=== PATIENT | female | born 1980 | race American Indian/Alaskan Native ===

== ENCOUNTER 2016-10-24 10:42 | Day surgery (SDC) | payer MEDICAID ==
--- NOTE | 2016-10-24 11:55 | Anesthesia Consultation ---
Anesthesia Consult and Med Hx Date of service: 10/24/16 - Airway Anesthetic Teeth Evaluation: Good, Caps (top left canine) ROM Head & Neck: Adequate Mental/Hyoid Distance: Adequate Mallampati Class: Class II Intubation Access Assessment: Probably Good - Pulmonary Exam CTA: Yes - Cardiac Exam Cardiac Exam: RRR - Pre-Operative Health Status ASA Pre-Surgery Classification: ASA2 Proposed Anesthetic Plan: MAC - Pulmonary Hx Smoking: Yes Hx Asthma: Yes (childhood) - Central Nervous System Hx Psychiatric Problems: Yes (Anxiety/Depression) - Hematic Hx Anemia: Yes
--- NOTE | 2016-10-24 11:55 | Anesthesia Day of Surgery ---
Anesthesia Day of Surgery - Day of Surgery Patient Examined: Yes Patient H&P Reviewed: Yes Patient is NPO: Yes
[2016-10-24] MEDS ORDERED: NACL 0.9% 1000 ML 1,000 ML IV SCH (12:00)
[2016-10-24] MEDS ORDERED: DIPRIVAN 10 MG/ML IV ONE ×3 (12:56)
[2016-10-24] MEDS ORDERED: XYLOCAINE MPF 2% ONE (13:00)
[2016-10-24] MEDS ORDERED: WATER FOR IRRIG STERILE IR ONE (13:02)
--- NOTE | 2016-10-24 13:55 | History and Physical Report ---
History of Present Illness Date of examination: 10/24/16 Date of admission: 10/24/2016 Chief complaint: Rectal bleeding, abdominal pain. History of present illness: Patient is 36-year-old female presents for evaluation of recurrent rectal bleeding and diffuse abdominal discomfort. Pain is particularly in the lower abdomen. Patient denies any other associated complaints. She presents now for colonoscopic assessment. Past History Past Medical History: other (depression) Medications and Allergies Allergies Allergy/AdvReac Type Severity Reaction Status Date / Time bupropion HCl Allergy Swelling Unverified 10/24/16 10:42 [From Wellbutrin] Latex, Natural Rubber Allergy Itching Unverified 10/24/16 10:42 Home Medications Medication Instructions Recorded Confirmed Last Taken Type Sertraline HCl [Zoloft] 50 mg PO 10/24/16 10/23/16 History Active Meds: Active Medications Sodium Chloride (Nacl 0.9% 1000 Ml) 1,000 mls @ 50 mls/hr IV DIRECT CASIMIRO Last Admin: 10/24/16 11:47 Dose: 50 mls/hr Review of Systems All systems: negative Exam - Constitutional Vitals: Temp Pulse Resp BP Pulse Ox 98.3 F 89 20 128/73 98 10/24/16 11:43 10/24/16 11:43 10/24/16 11:43 10/24/16 11:43 10/24/16 11:43 General appearance: Present: no acute distress, well-nourished - EENT Eyes: Present: PERRL ENT: hearing intact, clear oral mucosa - Neck Neck: Present: supple, normal ROM - Respiratory Respiratory effort: normal Respiratory: bilateral: CTA - Cardiovascular Heart Sounds: Present: S1 & S2. Absent: rub, click - Extremities Extremities: pulses symmetrical, No edema Peripheral Pulses: within normal limits - Abdominal General gastrointestinal: Present: soft, non-tender, non-distended, normal bowel sounds Female genitourinary: Present: normal - Integumentary Integumentary: Present: clear, warm, dry - Musculoskeletal Musculoskeletal: gait normal, strength equal bilaterally - Psychiatric Psychiatric: appropriate mood/affect, intact judgment & insight - Neurologic Neurologic: CNII-XII intact, moves all extremities Assessment and Plan Recurrent rectal bleeding/blood in stool. Diffuse abdominal pain. Plan: Full colonoscopy to evaluate patient.
--- NOTE | 2016-10-24 14:05 | Operative Report ---
Operative Report Operative Report: Date of procedure: 10/24/2016 Procedure: Colonoscopy with multiple hot biopsy polypectomies, multiple cold biopsies. Attending physician: Jelani Mckeon MD Home Visit Field Care Manager: Jelani Mckeon MD Indication: Patient is a 36-year-old female who presented history of recurrent rectal bleeding/blood in stool. She also has a history of abdominal pain. A colonoscopy is done to evaluate patient so that treatment may be directed based the findings. Consent: Informed consent was obtained after advising the patient and family regarding nature of this procedure, its indications, potential benefits as well as possible complications including but not limited to bleeding perforation and adverse reaction to medication, infection as well as other cardiopulmonary complications. An informed written and verbal consent was then obtained after due opportunity was provided for questions and answers. Monitoring: Patient was monitored continuously with pulse oximetry and electrocardiographic recordings as well as blood pressure recordings. Vital signs remained stable throughout this procedure with no untoward events. Preoperative assessment: Patient was assessed immediately prior to this procedure for capacity to tolerate monitored anesthesia care and moderate sedation as well as general anesthesia. Patient's ASA classification is 1, Mallampati class is 2, Hyomental distance is 3. Instrument: TheTaken videocolonoscope Medications: Propofol given intravenously in divided doses. For details please refer to anesthesia records. Description of procedure: Patient was placed in the left lateral decubitus position after achieving sedation, a digital rectal examination was performed following which the colonoscope was introduced into the anal verge and advanced to the cecum which was identified by the ileocecal valve, the appendiceal orifice, as well as by the cecal strap and direct transillumination. The colonoscope was subsequently withdrawn with careful inspection of all mucosal surfaces. Patient tolerated this procedure well and was subsequently taken to the recovery room. The following findings were noted. Findings: The colon was moderately tortuous. There were diverticula in the sigmoid colon and the descending colon. There were diminutive polyps seen in the sigmoid colon which were removed by hot biopsy polypectomy there were 2 of these. In the descending colon, there were additional diminutive polyps which were removed by hot biopsy polypectomy and retrieved. Also, there were diminutive polyps that were ablated, in the descending colon. In the rectum, patient had an area of mucosal prominence of unspecified endoscopic significance. This was biopsied as this appeared somewhat abnormal. On the retroflexed view at the anal verge patient had internal hemorrhoids. Impression: Multiple diminutive colon polyps status post hot biopsy polypectomy. Prominent mucosal fold in the rectum status post biopsies. Plan: Follow pathology report High-fiber diet Consider additional evaluation depending on the findings on the pathology report including a sigmoidoscopy to further review the rectal because a prominence. Additional steps will be taken in follow-up.
[2016-10-24 14:12] VITALS: BP 120/81
--- NOTE | 2016-10-24 15:00 | Post Anesthesia Evaluation ---
- Post Anesthesia Evaluation Patient Participated: Yes Airway Patent: Yes Stable Respiratory Function: Yes Nausea/Vomiting: No Temp > 96.8F: Yes Pain Manageable: Yes Adequeate Hydration: Yes Anesthesia Complications: No Block Receding Appropriately: Not Applicable Patient on Ventilator: No
== END 2016-10-24 10:43 | disposition home or self-care (01) ==
LOC: GIO 10:42
PROVIDERS: ATTEND Internal Medicine Gastroenterology
DX: K63.5 Polyp of colon (principal); K63.89 Other specified diseases of intestine; K57.30 Diverticulosis of large intestine without perforation or abscess without bleeding; K64.8 Other hemorrhoids; F32.9 Major depressive disorder, single episode, unspecified; Z88.8 Allergy status to other drugs, medicaments and biological substances; Z91.040 Latex allergy status
CPT/HCPCS: 45380; 45384; 45388; 81025; 88305; J2704

== ENCOUNTER 2017-10-28 08:31 | Emergency (ER) | payer MEDICAID ==
[2017-10-28 09:42] LABS: Hematocrit 31.7 % (30.3-42.9); Hemoglobin 9.7 gm/dl (10.1-14.3); Lymphocytes % (Auto) 19.9 % (13.4-35.0); Mean Corpuscular HGB Conc 31 % (30-34); Mean Corpuscular Hemoglobin 20 pg (28-32); Mean Corpuscular Volume 66 fl (79-97); Mean Platelet Volume 8.1 fl (6-12); Platelet Count 465 K/mm3 (140-440); Red Blood Count 4.83 M/mm3 (3.65-5.03); Red Cell Distribution Width 16.4 % (13.2-15.2)
[2017-10-28 09:43] LABS: Basophils % (Auto) 0.4 % (0.0-1.8); Eosinophils % (Auto) 0.8 % (0.0-4.3); Lymphocytes # (Auto) 1.8 K/mm3 (1.2-5.4); Monocytes % (Auto) 4.8 % (0.0-7.3)
[2017-10-28 09:44] LABS: Eosinophils # (Auto) 0.1 K/mm3 (0.0-0.4); Monocytes # (Auto) 0.4 K/mm3 (0.0-0.8)
[2017-10-28 09:53] LABS: Alanine Aminotransferase 10 units/L (7-56); BUN/Creatinine Ratio 8; Blood Urea Nitrogen 5 mg/dL (7-17); Calcium 9.4 mg/dL (8.4-10.2); Hemolysis Index 0; Lipase 73 units/L (13-60)
[2017-10-28] MEDS ORDERED: ZOFRAN IV ONE (10:21)
[2017-10-28] MEDS ORDERED: NACL 0.9% 1000 ML 1,000 ML IV ONE (10:21)
[2017-10-28] MEDS ORDERED: MORPHINE IV ONE (10:22)
[2017-10-28] MEDS ORDERED: ALUM-MAG HYDROX-SIMETH 200-200-20MG/5ML PO ONE (11:10)
[2017-10-28] MEDS ORDERED: LIDOCAINE VISCOUS 2% PO ONE (11:10)
[2017-10-28 11:23] LABS: Bilirubin,Urine NEG (Negative); Blood,Urine NEG (Negative); Color,Urine Yellow (Yellow); HCG Qualitative,Urine Negative (Negative); Mucus,Urine FEW /HPF; Protein,Urine <15 mg/dL mg/dL (Negative); Urobilinogen,Urine < 2.0 mg/dL (<2.0); WBC,Urine < 1.0 /HPF (0.0-6.0)
--- NOTE | 2017-10-28 11:26 | Emergency Department Report ---
ED Abdominal Pain HPI - General Chief Complaint: Abdominal Pain Stated Complaint: ABD PAIN Time Seen by Provider: 10/28/17 10:57 Source: patient, EMS Mode of arrival: Wheelchair Limitations: No Limitations - History of Present Illness Initial Comments: 37-year-old woman complained with proximally 12-15 hour history of severe recurrent abdominal pain, with repeated bouts of nausea and vomiting, but no diarrhea. She has a past history of mid abdominal mesh implant, presumably for ventral hernia, and she has had chronic pain since that time at the site of the implant, and this is been painful during the past evening, but she also has significant epigastric discomfort as well. She has had recurrent bouts of nausea and vomiting, and is concerned that this is been brought on by eating spoiled fried chicken, which she reports that her mother had left out the car evening before, in which she ate anyway, knowing that it may be bad. Pain is diffuse, but worse in the mid epigastrium and middle abdomen around the area of her mass just above the umbilicus, quite severe, being 10 out of 10, does not appear to radiate, is aching, sometimes crampy, associated with nausea , but no belching, no passage of flatus, nausea and vomiting as well, and although there was report of blood in emesis at intake, patient has not had any ongoing bleeding or prior history of significant bleeding, and no history of melena. Patient had colonoscopy last year for reports of rectal bleeding, and this was an unremarkable examination, showing some small polyps, but no other significant pathology, and biopsies were reportedly negative. Onset/Timin -: Sudden, hour(s) Time: 21:00 Location: periumbilical, epigastric Radiation: none Migration to: no migration Severity: severe Severity scale (0 -10): 10 Quality: cramping, stabbing, aching Improves With: nothing Worsens With: eating Context: possible food poisoning, other (distant mesh surgery) Associated Symptoms: nausea, vomiting. denies: diarrhea, dysuria, hematuria - Related Data Home Medications Medication Instructions Recorded Confirmed Last Taken Sertraline HCl [Zoloft] 50 mg PO 10/24/16 10/23/16 Previous Rx's Medication Instructions Recorded Last Taken Type HYDROcodone/APAP 5-325 [Kinta 1 each PO Q6HR PRN #15 tablet 10/28/17 Unknown Rx 5/325] Naproxen [Naprosyn TAB] 375 mg PO BID #20 tablet 10/28/17 Unknown Rx Sertraline HCl [Zoloft] 50 mg PO DAILY #30 tablet 10/28/17 Unknown Rx Allergies Allergy/AdvReac Type Severity Reaction Status Date / Time bupropion HCl Allergy Swelling Verified 10/28/17 10:29 [From Wellbutrin] Latex, Natural Rubber Allergy Itching Verified 10/28/17 10:29 ED Review of Systems ROS: Stated complaint: ABD PAIN Other details as noted in HPI Constitutional: denies: chills, fever Eyes: denies: eye pain, eye discharge, vision change ENT: denies: ear pain, throat pain Respiratory: no symptoms reported Cardiovascular: denies: chest pain, palpitations Endocrine: no symptoms reported Gastrointestinal: as per HPI Genitourinary: denies: urgency, dysuria, discharge Musculoskeletal: denies: back pain, joint swelling, arthralgia Skin: denies: rash, lesions Neurological: denies: headache, weakness, paresthesias Psychiatric: denies: anxiety, depression ED Past Medical Hx - Past Medical History Previous Medical History?: Yes Hx Asthma: Yes (childhood) Additional medical history: Abd. hernia - Surgical History Past Surgical History?: Yes Additional Surgical History: Abd mesh 2010, x 2 - Social History Smoking Status: Never Smoker Substance Use Type: Non Opiate Pain - Medications Home Medications: Home Medications Medication Instructions Recorded Confirmed Last Taken Type Sertraline HCl [Zoloft] 50 mg PO 10/24/16 10/23/16 History HYDROcodone/APAP 5-325 [Kinta 1 each PO Q6HR PRN #15 tablet 10/28/17 Unknown Rx 5/325] Naproxen [Naprosyn TAB] 375 mg PO BID #20 tablet 10/28/17 Unknown Rx Sertraline HCl [Zoloft] 50 mg PO DAILY #30 tablet 10/28/17 Unknown Rx ED Physical Exam - General Limitations: No Limitations General appearance: in no apparent distress (after treatment with oral antiemetics prior to my examination) - Head Head exam: Present: atraumatic, normocephalic - Eye Eye exam: Present: PERRL, EOMI - ENT ENT exam: Present: normal exam - Neck Neck exam: Present: normal inspection, full ROM. Absent: tenderness - Respiratory Respiratory exam: Present: normal lung sounds bilaterally. Absent: respiratory distress, wheezes, rales, rhonchi - Cardiovascular Cardiovascular Exam: Present: regular rate, normal heart sounds - GI/Abdominal GI/Abdominal exam: Present: soft, tenderness (epigastrium predominantly, less so around supraumbilical abdominal scar from Rossy surgery), normal bowel sounds. Absent: distended, rebound, rigid - Rectal Rectal exam: Present: deferred - Extremities Exam Extremities exam: Present: normal inspection, full ROM. Absent: tenderness - Neurological Exam Neurological exam: Present: alert, oriented X3, CN II-XII intact - Psychiatric Psychiatric exam: Present: other (patient was earlier quite demonstrative, agitated and confrontational, but considerably calmer by time of my examination) - Skin Skin exam: Present: warm, dry. Absent: cyanosis, diaphoretic, petechiae, abrasion ED Course Vital Signs 10/28/17 10/28/17 10/28/17 08:38 09:30 11:30 Temperature 36.9 C 36.7 C Pulse Rate 89 92 H 88 Respiratory 18 16 16 Rate Blood Pressure 113/80 Blood Pressure 141/68 140/82 [Left] O2 Sat by Pulse 99 100 100 Oximetry 10/28/17 14:04 Temperature Pulse Rate 98 H Respiratory 16 Rate Blood Pressure Blood Pressure 143/92 [Left] O2 Sat by Pulse 100 Oximetry - Reevaluation(s) Reevaluation #1: 10/28/17 14:19 Patient with significant and near total relief with partial injection of Stadol , refused remainder of injection, that she felt significantly better as well as sedated from the portion of injection received. ED Medical Decision Making - Lab Data Result diagrams: 10/28/17 08:55 10/28/17 08:55 - Radiology Data Radiology results: report reviewed (CT scan of the abdomen was essentially normal, did show significant cholelithiasis, but no acute cholecystitis. Mesh was noted from prior surgery, is intact, there is no surrounding fluid, and no other significant intra-abdominal pathology.) - Medical Decision Making Patient has abdominal discomfort secondary to strain of scar tissue surrounding mesh, which patient recalled now that she was feeling better that she was playing with her children, and may have stretched too much inadvertently. She is to light significantly improved although she still has residual discomfort, and patient was informed of the finding of cholelithiasis, which was currently asymptomatic, but not the cause of her pain, but may be a source of pain in the future. Patient will be treated symptomatically with local heat, anti- inflammatory with naproxen, and hydrocodone for more significant pain. She will be referred to a general surgeon if she wishes to have the mesh removed. - Differential Diagnosis gastritis, cholecystitis, ventral hernia, bowel obstruction Critical Care Time: No Critical care attestation.: If time is entered above; I have spent that time in minutes in the direct care of this critically ill patient, excluding procedure time. ED Disposition Clinical Impression: Abdominal wall pain Disposition: - TO HOME OR SELFCARE Is pt being admited?: No Does the pt Need Aspirin: No Condition: Stable Instructions: Abdominal Pain (ED) Additional Instructions: When the scar tissue around the mesh in your abdominal wall is sore, he may apply local heat, 15-30 minutes at a time, moderate heat only, 4-5 times per day. Naproxen can be taken twice daily for mild to moderate discomfort, and hydrocodone can be taken for more significant pain. Rest for the next day or 2, limit her activities, and allow the irritation regular mesh to subside. He may follow with her surgeon, and we have provided you with our on-call surgeon, Dr. Bear, if you wish to discuss with him the possibility of having your mesh removed. We have also refilled your Zoloft prescription, that she should not stop antidepressant medications suddenly, as this can cause adverse symptoms, including irritability, increased discomfort, and worsening mood disorder. Follow with your mental health counselor for refills as soon as possible. Prescriptions: HYDROcodone/APAP 5-325 [Kinta 5/325] 1 each PO Q6HR PRN #15 tablet PRN Reason: Pain Naproxen [Naprosyn TAB] 375 mg PO BID #20 tablet Sertraline HCl [Zoloft] 50 mg PO DAILY #30 tablet Referrals: PRIMARY MD MITCHELL [Primary Care Provider] - 3-5 Days HENNY BEAR MD [Staff Physician] - 3-5 Days Forms: Work/School Release Form(ED) Time of Disposition: 14:28
[2017-10-28] MEDS ORDERED: ZOFRAN ODT PO ONE (12:13)
[2017-10-28] MEDS ORDERED: STADOL IV ONE (12:13)
[2017-10-28] MEDS ORDERED: PROTONIX PO ONE (12:14)
--- NOTE | 2017-10-28 14:05 | Cat Scan Report ---
CT ABDOMEN AND PELVIS WITH CONTRAST: 10/28/17 08:31:00 CLINICAL: Abdominal pain. COMPARISON: None. TECHNIQUE: Volumetric acquisition and 1.25 millimeter scan reconstructions after the uneventful intravenous injection of 100 cc Omnipaque 300. Consent was obtained prior to the administration of contrast. Oral contrast was not given. FINDINGS: Abdomen: The lung bases are clear.The gallbladder is distended and contains layering calculi. There is also mild asymmetric gallbladder wall thickening of 3 mm. No pericholecystic fluid. Mild dilatation of intrahepatic bile ducts but the CBD is normal. Normal stomach, duodenum, pancreas and spleen. Normal adrenal glands and kidneys. The renal collecting systems and ureters are nondilated. Normal aorta and inferior vena cava. The small bowel is normal. Normal terminal ileum and appendix. A more ascending colon. Mild diverticulosis of the transverse and descending colon.Normal appearance of midline mesh graft. No abscess or fluid collection. No mass, lymphadenopathy or ascites.No pneumoperitoneum. Pelvis: Normal urinary bladder.Normal uterus and ovaries. Small follicles in both ovaries. No adnexal mass or free fluid. Possible circumferential thickening of the rectal wall. The lumen is nondistended and therefore examination of the rectal wall is limited. The sigmoid colon is normal except for a few proximal diverticula. Bone windows demonstrate no bone lesion. IMPRESSION:1. Cholelithiasis. Mild asymmetric gall bladder wall thickening but no other signs to suggest acute cholecystitis. 2. Mild intrahepatic biliary dilatation normal CBD. 3. No signs of pancreatitis. 4. Mild diverticulosis but no diverticulitis. 5. Possible rectal wall thickening. Consider further investigation with either a barium study or sigmoidoscopy.
[2017-10-28] MEDS ORDERED: ZOLOFT PO ONE (14:31)
[2017-10-28 14:53] VITALS: BP 147/96
== END 2017-10-28 14:53 | disposition home or self-care (01) ==
LOC: ED 08:31
DX: R10.13 Epigastric pain (principal); R10.33 Periumbilical pain; J45.909 Unspecified asthma, uncomplicated; Z88.8 Allergy status to other drugs, medicaments and biological substances; Z91.040 Latex allergy status
CPT/HCPCS: 36415; 74177; 80053; 81001; 81025; 83690; 85025; 96361; 96374; 96375; 99284; J0595; J2270; J2405; J7030; Q9967; Q0162